=== PATIENT | female | born 1985 | race African-American/Black ===

== ENCOUNTER 2020-10-17 12:27 | Emergency (ER) | payer SELFPAY ==
[~2020-10-17] VITALS: Ht 167.6 cm; Wt 60.0 kg
[2020-10-17] MEDS ORDERED: SODIUM CHLORIDE 0.9% 1,000 ML IV ONE (13:00)
[2020-10-17] MEDS ORDERED: METOCLOPRAMIDE HCL 10MG/2ML VIAL IV ONE (13:00)
[2020-10-17 14:13] LABS: BASOPHILS % 0.6 % (0.0-2.0); EOSINOPHILS % 0.3 % (0.0-5.0); HEMATOCRIT. 36.6 % (36.0-48.0); HEMOGLOBIN. 12.7 g/dL (12.0-16.0); LYMPHOCYTES % 14.1 % (20.0-50.0); MEAN CORPUSCULAR HEMOGLOBIN 30.1 pg (28.0-32.0); MEAN CORPUSCULAR VOLUME 86.4 fL (81.0-99.0); MEAN PLATELET VOLUME 10.8 fl (7.4-10.4); MONOCYTES % 6.6 % (2.0-8.0); NEUTROPHILS % 78.4 % (40.0-76.0); PLATELET 173 x1000/uL (130-400); RED BLOOD CELL COUNT 4.23 mill/uL (4.2-5.4); RED CELL DISTRIBUTION WIDTH 17.6 % (11.6-14.6)
[2020-10-17 14:13] LABS: CLARITY URINE CLOUDY (CLEAR); COLOR URINE YELLOW (YELLOW); KETONES URINE TRACE (NEGATIVE); LEUKOCYTE ESTERASE URINE 1+ (NEGATIVE); NITRITE URINE NEGATIVE (NEGATIVE); OCCULT BLOOD URINE NEGATIVE (NEGATIVE); PH URINE 5.5 (4.5-8.0); PROTEIN URINE NEGATIVE (NEGATIVE); SPECIFIC GRAVITY URINE 1.032 (1.005-1.030)
[2020-10-17 14:17] LABS: CHLORIDE 104 mEq/L (98-107)
[2020-10-17 14:40] VITALS: BP 112/68
[2020-10-17 15:02] LABS: B-HCG QUANTITATIVE > 200000 mIU/mL (<3)
[2020-10-17] MEDS ORDERED: CLOT21CR6 VG (16:33)
[2020-10-17] MEDS ORDERED: CEPH500C2 MT (16:33)
== END 2020-10-17 16:53 | disposition home or self-care (01) ==
LOC: ER 12:27
DX: O21.0 Mild hyperemesis gravidarum (principal); O99.332 Smoking (tobacco) complicating pregnancy, second trimester; Z3A.11 11 weeks gestation of pregnancy
CPT/HCPCS: 36415; 76801; 80053; 81003; 81025; 83690; 84702; 85025; 93005; 96361; 96374; 99285; J2765; J7030

== ENCOUNTER 2021-05-05 10:42 | Observation (INO) | payer MEDICAID ==
[~2021-05-05] VITALS: Ht 167.6 cm; Wt 78.9 kg
[~2021-05-05 10:42] MED LIST: CEPH500C2 MT; CLOT21CR6 VG
[2021-05-05 13:05] LABS: BASOPHILS % 0.5 % (0.0-2.0); EOSINOPHILS % 0.2 % (0.0-5.0); HEMATOCRIT. 40.7 % (36.0-48.0); HEMOGLOBIN. 13.4 g/dL (12.0-16.0); LYMPHOCYTES % 13.2 % (20.0-50.0); MEAN CORPUSCULAR HEMOGLOBIN 31.8 pg (28.0-32.0); MEAN CORPUSCULAR VOLUME 96.5 fL (81.0-99.0); MEAN PLATELET VOLUME 10.6 fl (7.4-10.4); MONOCYTES % 9.2 % (2.0-8.0); NEUTROPHILS % 76.9 % (40.0-76.0); PLATELET 120 x1000/uL (130-400); RED BLOOD CELL COUNT 4.21 mill/uL (4.2-5.4); RED CELL DISTRIBUTION WIDTH 15.1 % (11.6-14.6)
[2021-05-05 13:11] LABS: CLARITY URINE CLEAR (CLEAR); COLOR URINE YELLOW (YELLOW); KETONES URINE NEGATIVE (NEGATIVE); LEUKOCYTE ESTERASE URINE 2+ (NEGATIVE); NITRITE URINE NEGATIVE (NEGATIVE); OCCULT BLOOD URINE 3+ (NEGATIVE); PH URINE 7.5 (4.5-8.0); PROTEIN URINE NEGATIVE (NEGATIVE); SPECIFIC GRAVITY URINE 1.013 (1.005-1.030)
[2021-05-09] MEDS ORDERED: MULT-624 MT (06:45)
[2021-05-09] MEDS ORDERED: IBUP-2030 PO (06:45)
[2021-05-09] MEDS ORDERED: FERR-35 PO (06:45)
== END 2021-05-05 15:00 | disposition home or self-care (01) ==
LOC: 8 EST LDRP 10:42
PROVIDERS: ADMIT Obstetrics & Gynecology; ATTEND Obstetrics & Gynecology
DX: O46.93 Antepartum hemorrhage, unspecified, third trimester (principal); O09.523 Supervision of elderly multigravida, third trimester; Z3A.39 39 weeks gestation of pregnancy
CPT/HCPCS: 36415; 76805; 76818; 81003; 85025; 99281; G0378; 59025